=== PATIENT | female | born 1940 | race Caucasian/White ===

== ENCOUNTER 2016-08-09 10:52 | Emergency (ER) | payer MEDICARE, OTHER ==
[~2016-08-09] VITALS: Ht 170.2 cm; Wt 82.3 kg
[~2016-08-09 10:52] MED LIST: CHOL100045 PO; CYAN1TAB42 PO; ENAL20TA PO; FLUT16SP NS; FURO40TA4 PO; HYDR28.311 RC; INSU100I SQ; INSU100I13 SUBQ; LEVO100T45 PO; LOVA40TA PO; LUTE20CA8 PO; ZOLP10TA5 PO
[2016-08-09 11:01] VITALS: BP 158/71; PULSE 69; RESP 18; O2SAT 97
--- NOTE | 2016-08-09 11:45 | ED.REPORT ---
HPI-Abd Pain F 40 and Over Date of Service August 09, 2016 ED Provider: Nolvia Landeros MD The patient is a 76 year old female who presents to the ED due to diffuse, severe, stomach pain for the past for the past week. She reports distension and extreme bloating. She has been having some bowel movements and is passing gas. She denies dizziness, constipation, and diarrhea. Pt has a hx of chronic lower back pain. She recently had a GLF (no LOC) in which she bruised her right forearm and did not sustain any other injuries. Nursing Notes Stated Complaint: STOMACH PAIN Chief Complaint: Female Abdominal Pain Nursing Notes Reviewed: Yes Allergies: Coded Allergies: diltiazem (Verified Allergy, Severe, Hives, 10/28/14) etodolac (Verified Allergy, Severe, Rash, 10/28/14) hydrochlorothiazide (Verified Allergy, Severe, Hives, 10/28/14) Penicillins (Verified Allergy, Unknown, 10/28/14) RASH Scheduled Cholecalciferol (Vitamin D3) (Vitamin D) 1,000 Unit Capsule 1,000 UNIT PO DAILY Cyanocobalamin/Folic Acid (Vitamin P39-Xlgiy Acid Tablet) 1 Each Tablet 1 EACH PO DAILY Enalapril Maleate (Enalapril Maleate) 20 Mg Tablet 20 MG PO BID Fluticasone Propionate (Fluticasone Propionate Nasal) 16 Gm [place].susp 2 SPRAY NS BID Furosemide (Furosemide) 40 Mg Tablet 40 MG PO DAILY Insulin Glargine (Lantus U100 Solostar Insulin Pen) 100 Unit/1 Ml Insuln.pen 1 UNIT SUBQ QPM-INSULIN Levothyroxine (Levoxyl) 100 Mcg Tablet 100 MCG PO DAILY Lovastatin (Lovastatin) 40 Mg Tablet 40 MG PO HS Scheduled PRN Zolpidem (Zolpidem) 10 Mg Tablet 10 MG PO HS PRN PRN For Insomnia Miscellaneous Medications Hydrocortisone (Proctosol-Hc) 28.35 Gm Cream.appl 28.35 GM RC Insulin Aspart (NovoLOG U-100 Pen) 100 Unit/Ml Insuln.pen 100 Lutein (Lutein) 20 Mg Capsule 20 MG PO General Time Seen by MD: 11:45 Chief Complaint Abdominal pain Hx Obtained From: Patient Arrived By: Walk-in Sudden in Onset?: Yes Onset Occurred: 1 week ago Symptom Duration: Since onset Progression since Onset: Gradually worsening Location: : Diffuse Quality: Painful Severity: Current: Moderate Recent Healthcare: No recent doctor visit, No recent hospitalization Similar Sx Previous: No Past Medical History Past Medical History HTN DM diverticulitis Past Surgical History hysterectomy Smoking History Never Smoker Social History Other Social History: Good social support, , Local resident Ambulatory Status Independent Review of Systems GI: Reports: Abdominal pain, Denies: Constipation, Diarrhea, Hematochezia Complete sys rev & neg: except as marked. Neurologic: Denies: Change LOC, Dizziness Physical Exam Vital Signs Vital Signs (First) Date Time Temp Pulse Resp B/P Pulse Ox O2 Delivery O2 Flow Rate FiO2 08/09/16 11:01 36.5 69 18 158/71 97 Room Air Initial VS: Reviewed Head / Eyes: Atraumatic, Normocephalic ENT: Mucous membranes moist Extremities: Vascular intact, Neuro intact General/Constitutional: Awake, Alert, Cooperative Respiratory / Chest: Atraumatic, Breath sounds NL, Breath sounds = bilat, No respiratory distress Cardiovascular: Heart rate NL, Regular rhythm, Heart sounds NL, No gallop, No murmurs, No rubs Bowel Sounds / Distention: Positive: Bowel sounds hypoactive Back: Atraumatic, Inspection NL, Full range of motion Trauma / Burn / Environmental: Positive: Hematoma bruise with a small abrasion healing nicely on the right forearm bruising on mid-right abdomen bruising on right rib cage Interpretation & Diagnostics Lab Results Interpretation Result Diagram: 08/09/16 1212 08/09/16 1212 Test 08/09/16 12:12 08/09/16 14:39 White Blood Count 8.2th/mm3 (3.8-10.1) Red Blood Count 3.64mil/mm3 (3.90-5.20) Hemoglobin 10.9g/dL (12.0-15.6) Hematocrit 34.2% (35.0-46.0) Mean Corpuscular Volume 94.0fL (81-100) Mean Corpuscular Hemoglobin 29.9pg (27.0-35.0) Mean Corpuscular Hemoglobin Concent 31.9% (32.0-37.0) Red Cell Distribution Width 12.8% (12.3-15.4) Platelet Count 346bil/L (150-400) Neutrophils (%) (Auto) 69.5% (40-74) Lymphocytes (%) (Auto) 14.8% (14-46) Monocytes (%) (Auto) 13.5% (4-12) Eosinophils (%) (Auto) 1.9% (0-5) Basophils (%) (Auto) 0.2% (0-3) Sodium Level 144mEq/L (134-144) Potassium Level 4.1mEq/L (3.5-5.2) Chloride Level 103mEq/L (97-108) Carbon Dioxide Level 28mmol/L (18-29) Blood Urea Nitrogen 27mg/dL (8-27) Creatinine 0.92mg/dL (0.57-1.00) Estimat Glomerular Filtration Rate 85mL/min (>59) Glucose Level 89mg/dL (60-99) Calcium Level 8.5mg/dL (8.5-10.1) Magnesium Level 2.1mg/dL (1.6-2.6) Total Bilirubin 0.3mg/dL (0.0-1.2) Aspartate Amino Transf (AST/SGOT) 32U/L (0-50) Alanine Aminotransferase (ALT/SGPT) 20U/L (0-32) Alkaline Phosphatase 62U/L (25-165) Total Protein 6.4g/dL (6.4-8.4) Albumin 3.4g/dL (3.4-5.0) Lipase 11U/L (13-60) Hold [place] Top Tube Received (Received) Hold Urine Received (Received) ECG Interpretation Time: 12:26 Interpreted by: ED physician Normal ECG Interpretation: Normal ECG w/ rate of... (rate 65), No acute ischemic changes CT Abd / Pelvis Interpretation IMPRESSION: 1. Findings consistent with peritoneal carcinomatosis including ascites with peritoneal enhancement and omental caking as well as mesenteric and retroperitoneal lymphadenopathy. Findings likely represent metastatic disease from a right adnexal mass suspicious for ovarian carcinoma. The findings were discussed with Dr. Degroot on 08/09/16 at 2:15 PM. 2. Small left pleural effusion with compressive atelectasis. 3. Segmental colitis of the sigmoid colon likely infectious or inflammatory in etiology. Dictated by: Denys Beltran M.D. on 08/09/2016 at 14:09 Approved by: Denys Beltran M.D. on 08/09/2016 at 14:48 Study type: Abdominal CT no contrast Interpretation / Wet Read by: Interpret - Radiologist Procedures Procedure Notes: U/S guided paracentisis consent obtained Indication: diagnositic and therapeutic Ascites and carcinomitosis found on abd CT 100cc cloudy yellow peritoneal fluid sent to lab for cytology, pathology, cell count etc. An additional 1600 cc of fluid removed with significant relief as belly is less tense No complications No blood loss Re-Eval/Medical Decision Re-Evaluation/Progress : Time of Eval: 15:00 Re-Evaluation/Progress Note: Pt rechecked. Discussed concerning findings on CT scan and options at this point. With collaborative decision making we opted to do a paracentesis here in the emergency department and then have her go home. Dr. Gibbs was contacted and will be working on rapid follow-up appointment hopefully with cytology and better diagnosis available at time of their appointment. Alayna and her daughter are both in agreement with this plan Consultation #1: Call Returned at: 14:25 Note: Case discussed with Dr. Jatinder Beltran. X-ray shows metastatic ovarian cancer. Consultation #2: Call Returned at: 15:26 Note: Dr Gibbs Discussed admission versus paracentesis in the ER versus all follow-up arranged as an outpatient. We will see which patient prefers. Consultation #3: Call Returned at: 16:24 Systems Test Technician: Will see in office Note: Dr Gibbs's office will contact patient for apt within a week. Cytology/pathology from the peritoneal fluid should be available by that time. Counseled Regarding: Diagnosis, Lab results, Need for admission Discharge & Departure Primary Impression: Peritoneal carcinomatosis Disposition: Home Discharge Condition All VS Reviewed: Yes Condition: Stable Additional Instructions: Your belly pain and bloating today is due to fluid in your belly and the concern for cancer that has involved the lining of your intestines. There is a mass in the right adnexa (the area next to your uterus). All of these findings are concerning for metastatic ovarian cancer. We have pulled fluid from your belly today to get to a firm diagnosis. I expect the pathology to return in 4-5 days I have talked with our oncologist, Dr Gibbs. His office will be contacting you to discuss all of this along with treatment options. If you are feeling worse, please return to the ER. If you are having pain, it is OK to take 1-2 percoset as frequently as every 6 hours. This can cause constipation so please take a stool softener if you do take the narcotic. I wish you the very best. Referrals: Ang Rios DO (PCP) Scribe Attestation Portion of this note were transcribed by Latasha Ko. I, Dr. Nolvia Landeros, personally performed the history, physical exam, and medical decision-making: I reviewed and confirmed the accuracy for the information in the transcribed note. Signed by: jin Solorzano, 08/09/16 1500 copies to: Jung Kaur MD; Ang Rios Shawna L MD August 09, 2016 11:45 Latasha Ko August 09, 2016 11:54
[2016-08-09] MEDS ORDERED: HYDROmorphone 0.5 mg/0.5 mL iSecure Syringe IVPUSH PRN (11:55)
[2016-08-09] MEDS ORDERED: Ondansetron 2 mg/mL 2 mL Inj IVPUSH PRN (11:55)
[2016-08-09] MEDS ORDERED: 0.9% Sodium Chloride 1,000 ML IV ONE (11:55)
[2016-08-09 12:20] LABS: BASOPHILS % (AUTO) 0.2 % (0-3); EOSINOPHILS % (AUTO) 1.9 % (0-5); MONOCYTES % (AUTO) 13.5 % (4-12); Mean Corpuscular Hemoglobin 29.9 pg (27.0-35.0); NEUTROPHILS % (AUTO) 69.5 % (40-74); Platelet Count 346 bil/L (150-400)
[2016-08-09 12:45] LABS: Magnesium 2.1 mg/dL (1.6-2.6)
--- NOTE | 2016-08-09 14:50 | DRSVH ---
PROCEDURE: CT ABDOMEN AND PELVIS WITH CONTRAST ([id number]) INDICATIONS: belly pain TECHNIQUE: After the administration of oral and intravenous contrast, 5 mm thick sections acquired from the diap hragms to the symphysis. 5 mm thick coronal and sagittal reformats were performed. For radiation do se reduction, the following was used: automated exposure control, adjustment of mA and/or kV accordi ng to patient size. COMPARISON: None. FINDINGS: Image quality: Excellent. ABDOMEN: Lung bases: There is a small left pleural effusion with compressive atelectasis in the left lower lob e. Heart size is normal. There is a minimal pericardial effusion. There are a few probably promine nt cardiophrenic lymph nodes measuring up to 6 mm in short axis. There is a small hiatal hernia. Solid organs: Liver and spleen are normal in size and enhancement. Gallbladder demonstrate no calci fied gallstones. There is enhancement of the gallbladder wall which is nonspecific in the context of ascites. Biliary system is non-dilated. Pancreas enhances normally. No adrenal nodules. Kidneys demonstrate no hydronephrosis. There is a right renal cyst. Peritoneum and bowel: There is a moderate amount of ascites in the abdomen and pelvis with mild enha ncement of the peritoneum. There is infiltration of the omentum consistent with omental caking. The small bowel demonstrates normal caliber with segments of mild wall thickening which are likely re active secondary to ascites. There is colonic diverticulosis without definitive diverticulitis. The re is segmental wall thickening in the sigmoid colon consistent with a nonspecific mild colitis. Nodes and vessels: There multiple enlarged mesenteric and retroperitoneal lymph nodes. These includ e a kg hepatis node measuring up to 1.5 cm in short axis and a celiac axis node measuring up to 1. 6 cm with internal necrosis. A software sales representative aortocaval node measures up to 1.1 cm in short axis. Aorta and inferior vena cava are normal in caliber. Miscellaneous: No ventral hernias. PELVIS: Genitourinary: There is a lobulated mass in the right adnexa measuring up to 3.0 x 2.3 cm in transve rse dimension. Bladder wall thickness is normal. Miscellaneous: No inguinal hernias or adenopathy. Bones: No suspicious bony lesions. No vertebral body compression fractures. IMPRESSION: 1. Findings consistent with peritoneal carcinomatosis including ascites with peritoneal enhancement and omental caking as well as mesenteric and retroperitoneal lymphadenopathy. Findings likely repres ent metastatic disease from a right adnexal mass suspicious for ovarian carcinoma. The findings were discussed with Dr. Degroot on 08/09/16 at 2:15 PM. 2. Small left pleural effusion with compressive atelectasis. 3. Segmental colitis of the sigmoid colon likely infectious or inflammatory in etiology. Dictated by: Denys Beltran M.D. on 08/09/2016 at 14:09 Approved by: Denys Beltran M.D. on 08/09/2016 at 14:48
[2016-08-09 15:27] VITALS: BP 161/62; PULSE 78; RESP 16; O2SAT 95
[2016-08-09] MEDS ORDERED: OXYC1TAB24 PO (16:36)
[2016-08-09] MEDS ORDERED: CYAN1TAB52 SL (16:45)
[2016-08-09 16:56] VITALS: BP 187/77; PULSE 79; RESP 15; O2SAT 96
[2016-08-09 18:11] LABS: BFWBC 1975 /mm3; MONOCYTES,BODY FLUID 62 %
[2016-08-09 18:12] LABS: OTHER CELLS,BODY FLUID 13
--- NOTE | 2016-08-12 15:23 | PATH ---
SURGICAL PATHOLOGY Attending Physician:Heidi Landeros CASE STATUS: Signed Out PATIENT NAME: ELROY FULLER PID: [id number] : 1940 DATE COLLECTED:08/09/2016 00:00 SPECIMEN: Peritoneal Fluid CLINICAL HISTORY: Peritoneal Fluid ICD-10 code not given FINAL DIAGNOSIS: PERITONEAL FLUID: POSITIVE FOR MALIGNANT CELLS, CONSISTENT WITH PRIMARY OVARIAN CARCINOMA. ICD10 CODE C56 GROSS DESCRIPTION: Received fresh on 08/10/2016 is approximately 10 cc of clear yellow fluid. Prepared are one cell block, one ThinPrep and one Cytospin slides. Vo MICRO DESCRIPTION: The cytology slides and cell block contain numerous aggregates of malignant large epithelial cells. Immunocytochemistry is done to characterize the cells. Sections, along with appropriate controls, are incubated with the following antibodies: CK7:Positive PAX-8:Positive WT-1:Positive ER:Rare positive cells CK20:Negative The findings are consistent with an ovarian carcinoma. This test was developed and its performance characteristics determined [facility]. It has not been cleared or approved by the U. S. Food and Drug Administration. The FDA has determined that such clearance or approval is not necessary. This test is used for clinical purposes. It should not be regarded as investigational or for research. ICD-9 CODES: CPT CODES: 1: 14477, 78577, 08403, 37644, 13363, 01017, 29249 Electronically Signed Out lAfonso Reddy MD [facility] [address], [place] [address] Technical component performed at [facility], [facility] [address], [place], [address]
[2016-08-18] MEDS ORDERED: TRAM50TA2 PO (12:57)
[2016-08-18] MEDS ORDERED: GABA-502 PO (12:57)
[2016-08-18] MEDS ORDERED: CARV6.252 PO (12:57)
[2016-08-25] MEDS ORDERED: CYAN10008 PO (16:20)
[2016-08-27] MEDS ORDERED: PROC-4 PO (12:57)
== END 2016-08-09 16:58 | disposition home or self-care (01) ==
LOC: SED 10:52
DX: C78.6 Secondary malignant neoplasm of retroperitoneum and peritoneum (principal); I10 Essential (primary) hypertension; E11.9 Type 2 diabetes mellitus without complications; Z88.5 Allergy status to narcotic agent; Z88.8 Allergy status to other drugs, medicaments and biological substances; Z88.0 Allergy status to penicillin; Z79.4 Long term (current) use of insulin
CPT/HCPCS: 36415; 74177; 80053; 81002; 82042; 82378; 83690; 83735; 85025; 86304; 87070; 87075; 87205; 88112; 88305; 88341; 88342; 89051; 93005; 96374; 99285; J1170; J7030; Q9967

== ENCOUNTER 2016-08-26 12:03 | Day surgery (SDC) | payer MEDICARE, OTHER ==
[~2016-08-26] VITALS: Ht 170.2 cm; Wt 76.0 kg
--- NOTE | 2016-08-26 07:56 | PCM.HPANE ---
Patient Data Surgeon Admitting Provider: Attending Provider:Jose Renee MD Primary Care Physician:Ang Rios DO Other Provider:[facility] Reason for Visit Ovarian Cancer Ht/WT & BMI Height (Feet): 5 Height (Inches): 8 Weight (Kilograms): 76.204 Body Mass Index 25.00 Allergies Coded Allergies: Penicillins (Verified Allergy, Severe, rash, 08/25/16) diltiazem (Verified Allergy, Severe, Hives, 08/25/16) etodolac (Verified Allergy, Severe, Rash, 08/25/16) hydrochlorothiazide (Verified Allergy, Severe, Hives, 08/25/16) Past Anesthesia History Anesthesia History: Denies:: Abnormal Airway, Anesthesia Reactions, Difficult Intubation, Fam Anesthesia Reaction, Fam Malignant Hypertherm, Malignant Hyperthermia Diabetes History Hx Diabetes?: Yes (07/28/16 HGB A1C 6.7) Type of Diabetes: Type II Glycemic Control: Insulin Dependent MRSA MRSA: No Medications Hypertension Medication: Yes (ENALAPRIL,LASIX) Home Meds Incl Beta [place]: Yes (CARVEDILOL) Reported Medications Cyanocobalamin (Vitamin B-12) (Vitamin B-12)1,000 Mcg Tablet1,000 Mcg PO DAILY 08/25/16 Tramadol 50 Mg [id number] Mg PO TID PRN For Pain Ref 0 08/18/16 Gabapentin 300 Mg Aidcbuj885-669 Mg PO TID Ref 0 08/18/16 Carvedilol 6.25 Mg Tablet6.25 Mg PO BID Ref 0 08/18/16 Insulin Glargine (Lantus U100 Solostar Insulin Pen)100 Unit/1 Ml Insuln.pen20 Unit SUBQ HS #1 PENINJ Ref 0 10/11/14 Insulin Aspart (NovoLOG U-100 Pen)100 Unit/Ml Insuln.pen6 Units SQ TIDAC 10/10/14 Lutein 20 Mg Hoxrzoq22 Mg PO DAILY 10/10/14 Lovastatin 40 Mg Zrbpgc39 Mg PO HS #30 TABLET Ref 0 10/10/14 Levothyroxine (Levoxyl)100 Mcg Wvebng09 Mcg PO DAILY 30 Days Ref 0 10/10/14 Furosemide 40 Mg Ybfygz16 Mg PO QAM 30 Days 10/10/14 Fluticasone Propionate (Fluticasone Propionate Nasal)16 Gm [place].susp2 [place] NS BID PRN For Congestion #16 GM Ref 0 10/10/14 Enalapril Maleate 20 Mg Zgvxom36 Mg PO daily-bid 30 Days Ref 0 10/10/14 Discontinued Reported Medications Cyanocobalamin/Folic Acid (B-12 1,000 Mcg Sub Tablet)1 Each Tab.subl1 Each SL QAM 08/09/16 Zolpidem 10 Mg Brnouc94 Mg PO HS PRN For Insomnia 30 Days Ref 0 10/10/14 Cholecalciferol (Vitamin D3) (Vitamin D)1,000 Unit Capsule1,000 Unit PO QAM #1 BOTTLE Ref 0 10/10/14 Discontinued Scripts oxyCODONE-Acetaminophen 5-325 mg 1 Each Tablet1-2 Tab PO Q6H PRN For Pain #20 TABLET Prov:Nolvia Landeros MD 08/09/16 History History of ENT Problems?: Yes HEENT History: Denies:: Abnormal Airway Cataracts (HX MACULAR DEGENERATION) Difficult Intubation Dysphagia Hearing Problem Sinus Problem Denture Type: None Teeth Condition: Within Normal Limits Hx of Heart Problems?: Yes Cardiovascular History: Positive for:: Chest Pain (2012 MPS WNL) Hypertension (HYPERLIPIDEMIA) Denies:: AICD Atrial Fibrillation Congestive Heart Failure Heart Murmur (ECHO 03/2002 ) Pacemaker Rheumatic Fever Thrombophlebitis Valvular Heart Disease Hx of Respiratory Problem?: No Respiratory History: Positive for:: Pneumonia (HISTORY OF) Denies:: Asthma COPD Cough Dyspnea Emphysema Hemoptysis Tuberculosis Use of C-PAP Machine Hx Neurologic Problems?: No Neurological History: Denies:: Alzheimer's Disease CVA Dementia Dizziness Headaches Seizures Hx of GI Problems?: Yes Other GI Pertinent History: C/OF ABD PAIN,BLOATING,LACK OFAPPETITE,NAUSEA, CONSTIPATION,DIARRHEA Hx of Problems?: No Genitourinary History: Denies:: HX of Hemodialysis Kidney Stones Urinary Tract Infection Female Hx: Denies:: Currently Endometriosis Problems with Breasts? Skin History: Denies:: History Skin Disorders? Pressure Ulcers Hx Musculoskeletal Problems?: Yes Musculoskeletal History: Positive for:: Osteoarthritis Denies:: Back Injury (C/OF BACK PAIN) Joint Replacement Musculoskeletal Trauma Hx of Psycho/Social Problems?: Yes Psycho Social History: Positive for:: Hx Depression Denies:: Anxiety Bipolar Disorder Hx Surgeries?: No Hx Any Other Health Problems?: Yes Other History: Positive for:: Cancer (OVARIAN CA) Hospitalization (CHEST PAIN) Thyroid Disease Denies:: Endocrine Disease History Blood Transfusions: Denies:: Blood Transfusions Hx Diabetes: Yes (07/28/16 HGB A1C 6.7) Hx Alcohol Use: YesHx Substance Use: No Smoking Status: Unknown if Ever Smoker Have You Smoked inLast 12 mo: No Stop/Bang Treated for Sleep Apnea?: No Do You Have a CPAP Machine?: No S-Snoring: Do You Snore Loudly: No T-Tired: feel tired, fatigued: No O-Obsered: Observed not breath: No P-Blood Pressure: treated: Yes B- Body Mass Index > 35 kg/m2: No A- Age over 50: Yes N- Neck Large Circumference: No G- Gender Male: No ELMO Total Score: 2 ELMO Risk Assessment: Low Risk, <3 Yes Risk Assessment Category Category 1A: Patient has history of documented sleep apnea, and HAS NOT received any narcotic, sedative or anesthesia administration during this stay. Category 1B: Patient has history of documented sleep apnea, and HAS received any narcotic , sedative or anesthesia administration during this stay Category 2: Patient has SUSPECTED Obstructive Sleep Apnea, and HAS received any narcotic , sedative or anesthesia administration during this stay. Category 3: Patient has SUSPECTED Obstructive Sleep Apnea and HAS NOT received narcotic, sedative or anesthesia administration during this stay. Category 4: Outpatient in Procedural Areas with known sleep apnea or who screen positive for High Risk via the STOP/BANG questionnaire. Exam Exam General Appearance: Alert, Oriented X3, Cooperative, No Acute Distress HEENT/AIRWAY: MP 2 Lungs: Clear to Auscultation, Normal Air Movement Heart: Exam Unremarkable, Regular Rate/Rhythm, No Murmurs/Rubs/Gallops Plan Impression Patient chart reviewed, patient interviewed and anesthestic plan with risks, benefits, and alternatives discussed, and informed consent obtained. ASA Physical Status: ASA2 Mod Systemic Disease Anesthetic Plan: GA Bene/Risks/Altern/Consents: Yes HP Complete Prior to Induction: Yes Dominic Coreas MD Aug 26, 2016 07:56
[~2016-08-26 12:03] MED LIST changes: +CARV6.252 PO; -CHOL100045 PO; +CYAN10008 PO; -CYAN1TAB42 PO; +GABA-502 PO; -HYDR28.311 RC; +Lactated Ringer's 1,000 ML IV SCH; +TRAM50TA2 PO; +Vancomycin Inj 1,000 MG in IV Premix 1 EACH IV SCH; -ZOLP10TA5 PO
[2016-08-26] MEDS ORDERED: Propofol 10,000 mCg/mL 20 mL Inj ONE (12:04)
[2016-08-26] MEDS ORDERED: Ketamine 10 mg/mL 20 mL Inj ONE (12:04)
[2016-08-26] MEDS ORDERED: fentaNYL-PF 50 mCg/mL 2 mL Inj ONE (12:04)
[2016-08-26 12:55] VITALS: BP 148/56; PULSE 64; RESP 16; O2SAT 95
[2016-08-26] MEDS ORDERED: Lactated Ringer's 1,000 ML IV SCH (14:32)
[2016-08-26] MEDS ORDERED: Lactated Ringer's 500 ML IV PRN (14:32)
[2016-08-26] MEDS ORDERED: fentaNYL-PF 50 mCg/mL 2 mL Inj IVPUSH PRN (14:35)
[2016-08-26] MEDS ORDERED: Phenylephrine 10,000 mCg/mL Inj IVPUSH PRN (14:35)
[2016-08-26] MEDS ORDERED: Dexamethasone 4 mg/mL Inj IVPUSH PRN (14:35)
[2016-08-26] MEDS ORDERED: HYDROmorphone 1 mg/mL Inj IVPUSH PRN (14:35)
[2016-08-26] MEDS ORDERED: Ondansetron 2 mg/mL 2 mL Inj IVPUSH PRN (14:35)
[2016-08-26] MEDS ORDERED: MetoCLOpramide 5 mg/mL 2 mL Inj IVPUSH PRN (14:35)
[2016-08-26] MEDS ORDERED: EPHEDrine Sulfate 50 mg/mL Inj IVPUSH PRN (14:35)
[2016-08-26] MEDS ORDERED: Lactated Ringer's 1,000 ML IV ONE (14:46)
[2016-08-26] MEDS ORDERED: Lidocaine PF 1% 30 mL Inj INFILTRATE ONE (15:00)
[2016-08-26] MEDS ORDERED: Bupivacaine-MPF 0.25%/EPI 30 mL Inj INJ ONE (15:00)
[2016-08-26 15:32] VITALS: BP 140/60; PULSE 66; RESP 16; O2SAT 96
[2016-08-26 15:56] VITALS: BP 148/62; PULSE 65; RESP 16; O2SAT 100
--- NOTE | 2016-08-26 16:42 | DRSVH ---
PROCEDURE: X-RAY CHEST ONE VIEW, PORTABLE ([id number]) INDICATIONS: PORT TECHNIQUE: One view of the chest was acquired. COMPARISON: None. FINDINGS: Surgical changes and devices: Left chest port with the tip projecting in the mid SVC. Lungs and pleura: No pleural effusions or pneumothorax. Lungs are clear. Mild scattered scarring. Mediastinum: Mediastinal contours appear normal. Heart size is normal. Bones and chest wall: No suspicious bony lesions. Overlying soft tissues appear unremarkable. Chron ic appearing left rib fractures. IMPRESSION: No acute disease No pneumothorax, status post placement of left chest port Dictated by: Beau Buenrostro M.D. on 08/26/2016 at 16:39 Approved by: Beau Buenrostro M.D. on 08/26/2016 at 16:40
--- NOTE | 2016-08-27 04:05 | OP ---
[address] [address] OPERATIVE REPORT PATIENT: ELROY FULLER : 1940 MR#: [id number] ADMIT: 08/26/2016 JOB ID: [id number] DATE OF SURGERY: 08/26/2016 PREOPERATIVE DIAGNOSIS(ES): Metastatic ovarian cancer. POSTOPERATIVE DIAGNOSIS(ES): Metastatic ovarian cancer. OPERATIVE PROCEDURE: Insertion of left subclavian vein Port-A-Cath using fluoroscopy with interpretation for guidance. SURGEON: Jose Renee MD CRANE HOOKER: None. COMPLICATIONS: None. ESTIMATED BLOOD LOSS: Less than 5 mL. CONDITION: Satisfactory. SPECIMENS: None. FINDINGS: A low-profile port was placed in the left subclavian vein without complication. INDICATIONS/SIGNIFICANT HISTORY: The patient is a 76-year-old female with a recent diagnosis of metastatic ovarian cancer. She is scheduled to begin chemotherapy tomorrow. OPERATIVE TECHNIQUE: The patient was taken to the operating room and placed in a supine position. Light sedation was administered and perioperative antibiotics were given. The neck and chest were prepped and draped in the standard surgical fashion. A procedural pause was performed. The left subclavian vein was accessed with the first pass of the finder needle. A wire was inserted and its position then confirmed using fluoroscopy. The wire was seen to course through the heart, down into the inferior vena cava. Local anesthetic was injected, followed by creation of a subcutaneous pocket in the left anterior chest. The low-profile Port-A-Cath was secured in place using three 2-0 Prolene sutures. The catheter was tunneled up to the wire exit point and then inserted into the vein under fluoroscopic visualization using the Seldinger technique. Good final position was confirmed. The port aspirated and flushed nicely. This was locked with heparin. The skin was closed using 3-0 Vicryl deep dermis, followed by running 4-0 Monocryl. Dermabond was applied. The entire procedure was well tolerated without complication.
--- NOTE | 2016-08-27 08:19 | PCM.ANEP1 ---
Post Anesthesia PACU Phase 1 Assessment Anesthetic Administered: GA Level of Alertness: Sleepy, easy to arouse SWANSON's with Equal Strength: Yes Pain: No Nausea or Vomiting: No CV Function & Hydration Stable: Yes Airway Device: none Lungs: Clear to Auscultation, Normal Air Movement PACU Phase 2 Assessment Complications: No Follow up Care: No Patient Instructions Provided: Yes Dominic Coreas MD Aug 27, 2016 08:19
[2016-08-27] MEDS ORDERED: PROC-4 PO (12:57)
== END 2016-08-26 23:59 | disposition home or self-care (01) ==
LOC: SAS 12:03
PROVIDERS: ATTEND General Practice
DX: C56.1 Malignant neoplasm of right ovary (principal); I10 Essential (primary) hypertension; E78.5 Hyperlipidemia, unspecified; E11.9 Type 2 diabetes mellitus without complications; K21.9 Gastro-esophageal reflux disease without esophagitis; E03.9 Hypothyroidism, unspecified; F32.9 Major depressive disorder, single episode, unspecified; M19.90 Unspecified osteoarthritis, unspecified site; K57.30 Diverticulosis of large intestine without perforation or abscess without bleeding; Z79.4 Long term (current) use of insulin; Z80.3 Family history of malignant neoplasm of breast
CPT/HCPCS: 36561; 71010; 77001; C1788; J2250; J3010; J3370; J7120